=== PATIENT | female | born 1950 | race Caucasian/White ===

== ENCOUNTER 2017-05-28 10:09 | Emergency (ER) | payer MEDICAID ==
[~2017-05-28 10:09] MED LIST: ACT15 PO; ACT30 PO; AMARYL2 MG PO; AMARYL4 MG PO; AMLODIPINE BESY10 M1 PO; ASPIR 8181 MG PO; GEMFIBROZIL600 MG PO; METOPROLOL TART50 MG PO; NEU300 PO; OMEPRAZOLE DR20 M1 PO; ZOCOR20 MG PO
[2017-05-28 10:58] LABS: microscopic required? NO
[2017-05-28 11:08] LABS: BASOPHIL % 0.5 % (0-2); PLATELET COUNT 286 x10^3mcL (130-400); RED CELL DISTRIBUTION WIDTH 14.4 % (11.5-14.5)
[2017-05-28 11:17] LABS: CALCIUM 9.2 mg/dL (8.5-10.1); CARBON DIOXIDE 30.7 mmol/L (21-32); CHLORIDE SERUM 102 mmol/L (98-107); CREATININE SERUM 0.9 mg/dL (0.6-1.0); GFR1 > 60 mL/min; GLUCOSE SERUM 183 mg/dL (74-106); POTASSIUM SERUM 4.2 mmol/L (3.5-5.1); SODIUM SERUM 137 mmol/L (136-145)
[2017-05-28 11:20] LABS: ALBUMIN 3.8 g/dL (3.4-5.0); ALKALINE PHOSPHATASE 55 U/L (46-116); ALT/SGPT 30 U/L (14-59); AST/SGOT 19 U/L (15-37); BILIRUBIN TOTAL 0.64 mg/dL (0.20-1.00); TOTAL PROTEIN, SERUM 7.5 g/dL (6.4-8.2)
[2017-05-28 11:21] LABS: urine erythrocyte NEGATIVE (NEGATIVE)
[2017-05-28 13:18] VITALS: BP 146/76
== END 2017-05-28 13:18 | disposition home or self-care (01) ==
LOC: ED 10:09
PROVIDERS: Emergency Medicine
DX: M54.2 Cervicalgia (principal); I10 Essential (primary) hypertension; E11.9 Type 2 diabetes mellitus without complications; Z88.0 Allergy status to penicillin; Z79.899 Other long term (current) drug therapy
CPT/HCPCS: J1885; Q0092; Q9967

== ENCOUNTER 2017-10-14 09:58 | Emergency (ER) | payer MEDICAID ==
[~2017-10-14] VITALS: Ht 162.6 cm; Wt 78.9 kg
[2017-10-14 10:16] VITALS: Ht 162.6 cm; Wt 78.9 kg
[2017-10-14 10:52] LABS: BASOPHIL % 0.5 % (0-2); PLATELET COUNT 249 x10^3mcL (130-400); RED CELL DISTRIBUTION WIDTH 13.9 % (11.5-14.5)
[2017-10-14 10:54] LABS: CALCIUM 9.7 mg/dL (8.5-10.1); CHLORIDE SERUM 98 mmol/L (98-107); CREATININE SERUM 0.9 mg/dL (0.6-1.0); GFR1 > 60 mL/min; GLUCOSE SERUM 248 mg/dL (74-106); POTASSIUM SERUM 3.6 mmol/L (3.5-5.1); SODIUM SERUM 137 mmol/L (136-145)
[2017-10-14 10:58] LABS: ALBUMIN 4.2 g/dL (3.4-5.0); ALKALINE PHOSPHATASE 62 U/L (46-116); ALT/SGPT 34 U/L (14-59); AST/SGOT 23 U/L (15-37); BILIRUBIN TOTAL 0.69 mg/dL (0.20-1.00)
[2017-10-14 11:19] LABS: microscopic required? NO
[2017-10-14 12:09] LABS: urine erythrocyte NEGATIVE (NEGATIVE)
[2017-10-14 12:44] VITALS: BP 146/73
== END 2017-10-14 12:44 | disposition home or self-care (01) ==
LOC: ED 09:58
PROVIDERS: Emergency Medicine
DX: M54.5 Low back pain (principal); R51 Headache; I10 Essential (primary) hypertension; E11.9 Type 2 diabetes mellitus without complications; E78.00 Pure hypercholesterolemia, unspecified; K21.9 Gastro-esophageal reflux disease without esophagitis; Z88.0 Allergy status to penicillin
CPT/HCPCS: 36415; J1885

== ENCOUNTER 2017-12-02 09:41 | Emergency (ER) | payer MEDICAID ==
[~2017-12-02] VITALS: Ht 165.1 cm; Wt 78.5 kg
[2017-12-02 09:53] VITALS: BP 139/69; Ht 165.1 cm; Wt 78.5 kg
== END 2017-12-02 10:57 | disposition home or self-care (01) ==
LOC: ED 09:41
DX: J40 Bronchitis, not specified as acute or chronic (principal); J32.9 Chronic sinusitis, unspecified; I10 Essential (primary) hypertension; E78.00 Pure hypercholesterolemia, unspecified; E11.9 Type 2 diabetes mellitus without complications; Z88.0 Allergy status to penicillin

== ENCOUNTER 2018-01-30 09:51 | Emergency (ER) | payer MEDICAID ==
[~2018-01-30] VITALS: Ht 383.5 cm; Wt 77.3 kg
[2018-01-30 10:02] VITALS: Ht 383.5 cm; Wt 77.3 kg
[2018-01-30] MEDS ORDERED: LOSARTAN POTASS1 TA6 PO (10:26)
[2018-01-30] MEDS ORDERED: LIPI20 PO (10:27)
[2018-01-30] MEDS ORDERED: JANUVIA100 M1 PO (10:27)
[2018-01-30] MEDS ORDERED: METOPROLOL TART50 MG PO (10:28)
[2018-01-30] MEDS ORDERED: METFORMIN HCL1000 MG PO (10:29)
[2018-01-30] MEDS ORDERED: ALENDRONATE SOD70 M2 PO (10:30)
[2018-01-30] MEDS ORDERED: ALLEGRA ALLERG180 M1 PO (10:32)
[2018-01-30 11:29] LABS: microscopic required? NO
[2018-01-30 11:34] LABS: CALCIUM 8.9 mg/dL (8.5-10.1); CARBON DIOXIDE 29.1 mmol/L (21-32); POTASSIUM SERUM 3.5 mmol/L (3.5-5.1)
[2018-01-30 11:39] LABS: ALBUMIN 3.6 g/dL (3.4-5.0); BILIRUBIN TOTAL 0.5 mg/dL (0.20-1.00); TOTAL PROTEIN, SERUM 7.2 g/dL (6.4-8.2)
[2018-01-30 12:11] LABS: BASOPHIL % 0.2 % (0-2); PLATELET COUNT 248 x10^3mcL (130-400)
[2018-01-30 12:16] LABS: UA SPECIFIC GRAVITY <=1.005 (1.005-1.035); urine erythrocyte NEGATIVE (NEGATIVE)
[2018-01-30 12:31] LABS: AMPHETAMINE QUAL UR NONE DETECTED (See below)
[2018-01-30 13:31] VITALS: BP 120/73
== END 2018-01-30 13:31 | disposition home or self-care (01) ==
LOC: ED 09:51
PROVIDERS: Emergency Medicine
DX: E11.65 Type 2 diabetes mellitus with hyperglycemia (principal); R42 Dizziness and giddiness; I10 Essential (primary) hypertension; E78.00 Pure hypercholesterolemia, unspecified; K21.9 Gastro-esophageal reflux disease without esophagitis; Z88.0 Allergy status to penicillin
CPT/HCPCS: 36415; J1815; J8597; Q0092; Q0162

== ENCOUNTER 2018-06-03 12:00 | Emergency (ER) | payer MEDICAID ==
[~2018-06-03] VITALS: Ht 154.9 cm; Wt 72.6 kg
[~2018-06-03 12:00] MED LIST changes: +ALENDRONATE SOD70 M2 PO; +ALLEGRA ALLERG180 M1 PO; +JANUVIA100 M1 PO; +LIPI20 PO; +LOSARTAN POTASS1 TA6 PO; +METFORMIN HCL1000 MG PO
[2018-06-03 12:11] VITALS: Ht 154.9 cm; Wt 72.6 kg
[2018-06-03 12:59] LABS: BASOPHIL % 0.8 % (0-2); PLATELET COUNT 269 x10^3mcL (130-400); RED CELL DISTRIBUTION WIDTH 13.6 % (11.5-14.5)
[2018-06-03 13:27] LABS: ALBUMIN 4.2 g/dL (3.4-5.0); BILIRUBIN TOTAL 0.39 mg/dL (0.20-1.00); CALCIUM 9.7 mg/dL (8.5-10.1); CARBON DIOXIDE 26.4 mmol/L (21-32); CREATININE SERUM 1.2 mg/dL (0.6-1.0); POTASSIUM SERUM 4.5 mmol/L (3.5-5.1)
[2018-06-03 13:35] LABS: FREE T4 0.97 ng/dL (0.76-1.46); FREE THYROXINE INDEX 2.2 ug/dL (1.4-4.5); T4(THYROXINE) 7.2 ug/dL (4.7-13.3)
[2018-06-03 13:45] LABS: TOTAL PROTEIN, SERUM 8.7 g/dL (6.4-8.2)
[2018-06-03 13:55] LABS: T3 TOTAL 1.17 ng/mL
[2018-06-03 14:19] VITALS: BP 126/67
== END 2018-06-03 14:19 | disposition home or self-care (01) ==
LOC: ED 12:00
PROVIDERS: Specialist
DX: R42 Dizziness and giddiness (principal); G89.29 Other chronic pain; M54.42 Lumbago with sciatica, left side; I10 Essential (primary) hypertension; E11.9 Type 2 diabetes mellitus without complications; E78.00 Pure hypercholesterolemia, unspecified; K21.9 Gastro-esophageal reflux disease without esophagitis; Z98.890 Other specified postprocedural states; Z88.0 Allergy status to penicillin
CPT/HCPCS: 36415; 82962; 84439; Q0092

== ENCOUNTER 2018-06-18 10:06 | Emergency (ER) | payer MEDICAID ==
[~2018-06-18] VITALS: Ht 162.6 cm; Wt 77.1 kg
[2018-06-18 10:21] VITALS: BP 178/98; Ht 162.6 cm; Wt 77.1 kg
== END 2018-06-18 10:49 | disposition home or self-care (01) ==
LOC: ED 10:06
DX: M54.32 Sciatica, left side (principal); K21.9 Gastro-esophageal reflux disease without esophagitis; I10 Essential (primary) hypertension; E11.9 Type 2 diabetes mellitus without complications; E78.00 Pure hypercholesterolemia, unspecified; Z88.0 Allergy status to penicillin
CPT/HCPCS: J1885; J7512

== ENCOUNTER 2018-09-25 08:22 | Emergency (ER) | payer BC ==
[~2018-09-25] VITALS: Ht 154.9 cm; Wt 72.1 kg
[2018-09-25 08:29] VITALS: Ht 154.9 cm; Wt 72.1 kg
[2018-09-25 12:16] VITALS: BP 140/50
== END 2018-09-25 12:16 | disposition home or self-care (01) ==
LOC: ED 08:22
DX: J98.01 Acute bronchospasm (principal); R51 Headache; I10 Essential (primary) hypertension; E11.9 Type 2 diabetes mellitus without complications; E78.00 Pure hypercholesterolemia, unspecified; M54.30 Sciatica, unspecified side
CPT/HCPCS: 82962; J2930; J7613; J7644

== ENCOUNTER 2018-10-28 19:55 | Emergency (ER) | payer BC ==
[~2018-10-28] VITALS: Ht 160 cm; Wt 85.7 kg
[2018-10-28 20:03] VITALS: Ht 160 cm; Wt 85.7 kg
[2018-10-28 21:00] LABS: BASOPHIL % 1.5 % (0-2); PLATELET COUNT 292 x10^3mcL (130-400); RED CELL DISTRIBUTION WIDTH 14.2 % (11.5-14.5)
[2018-10-28 21:36] LABS: CALCIUM 9.8 mg/dL (8.5-10.1); CARBON DIOXIDE 26.7 mmol/L (21-32); CREATININE SERUM 1.4 mg/dL (0.6-1.0)
[2018-10-28 21:41] LABS: ALBUMIN 3.9 g/dL (3.4-5.0); BILIRUBIN TOTAL 0.5 mg/dL (0.20-1.00); TOTAL PROTEIN, SERUM 7.5 g/dL (6.4-8.2)
[2018-10-29 00:05] VITALS: BP 154/83
== END 2018-10-29 00:05 | disposition home or self-care (01) ==
LOC: ED 19:55
PROVIDERS: Emergency Medicine
DX: I10 Essential (primary) hypertension (principal); R51 Headache; E11.9 Type 2 diabetes mellitus without complications; Z88.0 Allergy status to penicillin
CPT/HCPCS: 36415; J1885

== ENCOUNTER 2019-01-23 08:52 | Emergency (ER) | payer OTHER ==
[~2019-01-23] VITALS: Ht 157.5 cm; Wt 72.6 kg
[2019-01-23 11:21] VITALS: BP 142/84
== END 2019-01-23 11:21 | disposition home or self-care (01) ==
LOC: ED 08:52
DX: M54.41 Lumbago with sciatica, right side (principal)
CPT/HCPCS: 82962; J1885

== ENCOUNTER 2019-03-12 09:38 | Emergency (ER) | payer OTHER ==
[~2019-03-12] VITALS: Ht 154.9 cm; Wt 72.1 kg
[2019-03-12 09:50] VITALS: Ht 154.9 cm; Wt 72.1 kg
[2019-03-12 12:42] VITALS: BP 144/70
== END 2019-03-12 12:47 | disposition home or self-care (01) ==
LOC: ED 09:38
DX: K61.1 Rectal abscess (principal); I10 Essential (primary) hypertension; E11.9 Type 2 diabetes mellitus without complications; E78.00 Pure hypercholesterolemia, unspecified; K21.9 Gastro-esophageal reflux disease without esophagitis; Z88.0 Allergy status to penicillin
CPT/HCPCS: 82962; J1885

== ENCOUNTER 2019-03-14 11:11 | Emergency (ER) | payer OTHER ==
[~2019-03-14] VITALS: Ht 154.9 cm; Wt 72.6 kg
[2019-03-14 11:15] VITALS: Ht 154.9 cm; Wt 72.6 kg
[2019-03-14 13:20] LABS: BASOPHIL % 0.3 % (0-2); PLATELET COUNT 317 x10^3mcL (130-400)
[2019-03-14 13:31] LABS: CALCIUM 10.5 mg/dL (8.5-10.1); CARBON DIOXIDE 31.3 mmol/L (21-32); CHLORIDE SERUM 97 mmol/L (98-107); CREATININE SERUM 1.1 mg/dL (0.6-1.0); GFR1 52 mL/min; GLUCOSE SERUM 190 mg/dL (74-106); POTASSIUM SERUM 3.4 mmol/L (3.5-5.1); SODIUM SERUM 138 mmol/L (136-145)
[2019-03-14 13:36] LABS: ALBUMIN 4.1 g/dL (3.4-5.0); ALKALINE PHOSPHATASE 60 U/L (46-116); ALT/SGPT 33 U/L (14-59); AST/SGOT 19 U/L (15-37); BILIRUBIN TOTAL 0.6 mg/dL (0.20-1.00); LIPASE 182 IU/L (73-393); TOTAL PROTEIN, SERUM 7.9 g/dL (6.4-8.2)
[2019-03-14 13:51] LABS: microscopic required? NO
[2019-03-14 14:01] LABS: UA SPECIFIC GRAVITY 1.025 (1.005-1.035); urine erythrocyte NEGATIVE (NEGATIVE)
[2019-03-14] MEDS ORDERED: TRAMADOL HCL50 MG PO (14:12)
[2019-03-14] MEDS ORDERED: COLACE100 MG PO (14:12)
[2019-03-14 17:38] VITALS: BP 135/70
== END 2019-03-14 17:38 | disposition short-term general hospital (02) ==
LOC: ED 11:11
PROVIDERS: Emergency Medicine
DX: R10.13 Epigastric pain (principal); A41.9 Sepsis, unspecified organism; K62.89 Other specified diseases of anus and rectum; I10 Essential (primary) hypertension; E11.9 Type 2 diabetes mellitus without complications; E78.00 Pure hypercholesterolemia, unspecified; Z88.0 Allergy status to penicillin
CPT/HCPCS: 82962; J1885; J1956; J2405; J3490; J7030

== ENCOUNTER 2019-10-27 08:41 | Emergency (ER) | payer OTHER ==
[~2019-10-27] VITALS: Ht 154.9 cm; Wt 74.8 kg
[~2019-10-27 08:41] MED LIST changes: +COLACE100 MG PO; +TRAMADOL HCL50 MG PO
[2019-10-27 08:52] VITALS: Ht 154.9 cm; Wt 74.8 kg
[2019-10-27 11:23] VITALS: BP 133/80
== END 2019-10-27 11:23 | disposition home or self-care (01) ==
LOC: ED 08:41
DX: J20.9 Acute bronchitis, unspecified (principal); K21.9 Gastro-esophageal reflux disease without esophagitis; E78.00 Pure hypercholesterolemia, unspecified; I10 Essential (primary) hypertension; E11.9 Type 2 diabetes mellitus without complications; M54.30 Sciatica, unspecified side
CPT/HCPCS: 87804; J1885; J7512; Q0092

== ENCOUNTER 2019-12-09 10:54 | Emergency (ER) | payer OTHER ==
[~2019-12-09] VITALS: Ht 154.9 cm; Wt 76.7 kg
[2019-12-09 10:58] VITALS: Ht 154.9 cm; Wt 76.7 kg
[2019-12-09 12:49] VITALS: BP 141/61
== END 2019-12-09 12:49 | disposition home or self-care (01) ==
LOC: ED 10:54
DX: G89.29 Other chronic pain (principal); M54.9 Dorsalgia, unspecified; I10 Essential (primary) hypertension; E11.9 Type 2 diabetes mellitus without complications; K21.9 Gastro-esophageal reflux disease without esophagitis; E78.00 Pure hypercholesterolemia, unspecified; Z88.0 Allergy status to penicillin
CPT/HCPCS: J2270; J3490